=== PATIENT | male | born 1985 | race Caucasian/White ===

== ENCOUNTER 2016-11-04 15:14 | Inpatient (IN) | payer OTHER ==
[2016-11-04 16:52] VITALS: BMI 38.7
--- NOTE | 2016-11-04 17:58 | HP ---
CIWA Score - CIWA Score Nausea/Vomitin-Mild Nausea/No Vomiting Muscle Tremors: 4-Moderate,w/Arms Extend Anxiety: 4-Mod. Anxious/Guarded Agitation: 4-Moderately Restless Paroxysmal Sweats: 1-Minimal Palms Moist Orientation: 1-Uncertain about Date Tacttile Disturbances: 0-None Auditory Disturbances: 0-None Visual Disturbances: 0-None Headache: 0-None Present CIWA-Ar Total Score: 15 Admission ROS BHS - HPI Chief Complaint: withdrawal sx Allergies/Adverse Reactions: Allergies Allergy/AdvReac Type Severity Reaction Status Date / Time No Known Allergies Allergy Verified 11/04/16 17:14 History of Present Illness: 31 years old male with long history of alcohol nicotine dependence has chronic bronchitis positive ppd and schizophrenia is admitted to detox Exam Limitations: No Limitations - Ebola screening Have you traveled outside of the country in the last 21 days: No Have you had contact with anyone from an Ebola affected area: No Have you been sick,other than usual withdrawal symptoms: No Do you have a fever: No - Review of Systems Constitutional: Chills, Changes in sleep, Weight Stable EENT: reports: No Symptoms Reported Respiratory: reports: SOB with Exertion, Productive cough (greenish) Cardiac: reports: No Symptoms Reported GI: reports: Nausea, Poor Fluid Intake, Abdominal cramping : reports: No Symptoms Reported Musculoskeletal: reports: Joint Pain (right knee), Muscle Pain Integumentary: reports: No Symptoms Reported Neuro: reports: Tremors Endocrine: reports: No Symptoms Reported Hematology: reports: No Symptoms Reported Psychiatric: reports: Judgement Intact Other Systems: Reviewed and Negative Patient History - Patient Medical History Hx Anemia: No Hx Asthma: No Hx Chronic Obstructive Pulmonary Disease (COPD): No Hx Cancer: No Hx Cardiac Disorders: No Hx Congestive Heart Failure: No Hx Hypertension: No Hx Hypercholesterolemia: Yes (DIETARY CONTROL) Hx Pacemaker: No HX Cerebrovascular Accident: No Hx Seizures: No Hx Dementia: No Hx Diabetes: No Hx Gastrointestinal Disorders: No Hx Liver Disease: No Hx Genitourinary Disorders: No Hx Sexually Transmitted Disorders: No Hx Renal Disease (ESRD): No Hx Thyroid Disease: No Hx Human Immunodeficiency Virus (HIV): No Hx Hepatitis C: No Hx Depression: No Hx Suicide Attempt: No Hx Bipolar Disorder: No Hx Schizophrenia: Yes - Patient Surgical History Past Surgical History: Yes Hx Neurologic Surgery: No Hx Cataract Extraction: No Hx Cardiac Surgery: No Hx Lung Surgery: No Hx Breast Surgery: No Hx Breast Biopsy: No Hx Abdominal Surgery: No Hx Appendectomy: No Hx Cholecystectomy: No Hx Genitourinary Surgery: No Hx Orthopedic Surgery: Yes (right knee) Anesthesia Reaction: No - PPD History Previous Implant?: Yes Documented Results: Positive w/proof Implanted On Prior [facility] Admission?: Yes Date: 03/28/16 Results: 15 mm PPD to be Administered?: No - Smoking Cessation Smoking history: Current every day smoker Have you smoked in the past 12 months: Yes Aproximately how many cigarettes per day: 20 Cigars Per Day: 0 Hx Chewing Tobacco Use: No Initiated information on smoking cessation: Yes 'Breaking Loose' booklet given: 11/04/16 - Substance & Tx. History Hx Alcohol Use: Yes Hx Substance Use: No Substance Use Type: Alcohol Hx Substance Use Treatment: Yes - Substances Abused Alcohol Route: Oral Frequency: Daily Amount used: 1 PINT NICOLE/ 1 CAN BEER Age of first use: 21 Date of Last Use: 11/04/16 Crack Route: Smoking Frequency: 1-2 times per week Amount used: 2-3 BAGS Age of first use: 16 Date of Last Use: 10/28/16 Family Disease History - Family Disease History Family History: Unremarkable Admission Physical Exam S - Vital Signs Vital Signs: Vital Signs - 24 hr 11/04/16 16:49 Temperature 97.9 F Pulse Rate 102 H Respiratory 20 Rate Blood Pressure 100/69 - Physical General Appearance: Yes: Appropriately Dressed, Mild Distress, Obese, Tremorous , Irritable, Sweating, Anxious HEENTM: Yes: Hearing grossly Normal, Normal ENT Inspection, Normocephalic, Normal Voice Respiratory: Yes: Chest Non-Tender, No Respiratory Distress, No Accessory Muscle Use, Hyperresonant, Inspiration Neck: Yes: Supple, Trachea in good position Breast: Yes: Breasts Symetrical Cardiology: Yes: Regular Rhythm, S1, S2, Tachycardia Abdominal: Yes: Non Tender, Soft Genitourinary: Yes: Within Normal Limits Back: Yes: Normal Inspection Musculoskeletal: Yes: full range of Motion, Gait Steady, Muscle Pain (right knee ) Extremities: Yes: Normal Range of Motion, Non-Tender, Tremors Neurological: Yes: Fully Oriented, Alert, Motor Strength 5/5, Normal Response Integumentary: Yes: Warm Lymphatic: Yes: Within Normal Limits - Diagnostic (1) Positive PPD Current Visit: Yes Status: Resolved Comment: negative chest x ray (2) Schizoaffective disorder Current Visit: Yes Status: Suspected Qualifiers: Schizoaffective disorder type: bipolar Qualified Code(s): F25.0 - Schizoaffective disorder, bipolar type (3) Nicotine dependence Current Visit: Yes Status: Acute Qualifiers: Nicotine product type: cigarettes Substance use status: in withdrawal Qualified Code(s): F17.213 - Nicotine dependence, cigarettes, with withdrawal (4) Alcohol dependence with uncomplicated withdrawal Current Visit: Yes Status: Acute (5) Bronchitis Current Visit: Yes Status: Acute Comment: symbicort Cleared for Admission S - Detox or Rehab S Level of Care: Medically Managed Detox Regimen/Protocol: Librium S Breath Alcohol Content Breath Alcohol Content: 0 Urine Drug Screen - Results Drug Screen Negative: Yes
[2016-11-04] MEDS ORDERED: MENTHOL/PHENOL 1 EACH UD MM PRN (18:14)
[2016-11-04] MEDS ORDERED: MAG HYDROX/AL HYDROX/SIMETH 30 ML UNIT-DOSE CUP PO PRN (18:14)
[2016-11-04] MEDS ORDERED: P-EPHED 60MG/TRIPROLIDI 2.5MG TABLET PO PRN (18:14)
[2016-11-04] MEDS ORDERED: MAGNESIUM HYDROX 2400MG/30ML ORAL SUSPENSION 30 ML CUP PO PRN (18:14)
[2016-11-04] MEDS ORDERED: MAGNESIUM CITRATE 300 ML BOTTLE PO PRN (18:14)
[2016-11-04] MEDS ORDERED: chlordiazePOXIDE HCL 25 MG CAPSULE PO PRN (18:14)
[2016-11-04] MEDS ORDERED: LOPERAMIDE HCL 2 MG CAPSULE PO PRN (18:14)
[2016-11-04] MEDS ORDERED: ACETAMINOPHEN 325 MG TABLET (FP) PO PRN (18:14)
[2016-11-04] MEDS ORDERED: guaiFENesin/D-METHORPHAN HB 10 ML UNIT-DOSE CUPS PO PRN (18:14)
[2016-11-04] MEDS: diphenhydrAMINE HCL 50 MG CAPSULE PO PRN (22:29)
[2016-11-04] MEDS: THIAMINE HCL 100 MG TABLET (FP) PO SCH (22:33)
[2016-11-04] MEDS: BUDESONIDE/FORMETEROL FUMARATE 80/4.5 mcg INHALER IH SCH (22:33)
[2016-11-04] MEDS: chlordiazePOXIDE HCL 25 MG CAPSULE PO SCH (22:33)
[2016-11-04 22:48] LABS: URINE APPEARANCE SLCLOUDY; URINE BILIRUBIN NEGATIVE (NEGATIVE); URINE BLOOD NEGATIVE (NEGATIVE); URINE COLOR YELLOW; URINE GLUCOSE (UA) NEGATIVE (NEGATIVE); URINE KETONE NEGATIVE (NEGATIVE); URINE LEUK ESTERASE NEGATIVE (NEGATIVE); URINE NITRITE NEGATIVE (NEGATIVE); URINE PROTEIN NEGATIVE (NEGATIVE); URINE UROBILINOGEN NEGATIVE E.U./dl (0.2-1.0)
[2016-11-05] MEDS: chlordiazePOXIDE HCL 25 MG CAPSULE PO SCH ×4 (05:46→22:50)
[2016-11-05 10:10] LABS: MCH 29.9 pg (25.7-33.7); MCHC 33.5 g/dl (32.0-35.9); MEAN CELL VOLUME 89.2 fl (80-96); PLATELET COUNT 250 K/MM3 (134-434); RDW 13.4 % (11.9-15.9); WHITE BLOOD COUNT 6.7 K/mm3 (4.0-10.0)
[2016-11-05 10:25] LABS: ALBUMIN 3.7 g/dl (3.4-5.0); CALCIUM 8.8 mg/dL (8.5-10.1)
--- NOTE | 2016-11-05 10:26 | PN ---
S CIWA - CIWA Score Nausea/Vomitin Muscle Tremors: 3 Anxiety: 3 Agitation: 2 Paroxysmal Sweats: 1-Minimal Palms Moist Orientation: 0-Oriented Tacttile Disturbances: 1-Very Mild Itch/Numbness Auditory Disturbances: 1-Very Mild Visual Disturbances: 1-Very Mild Sensitivity Headache: 2-Mild CIWA-Ar Total Score: 17 BHS Progress Note (SOAP) Subjective: ALERT,IRRITABLE,ANXIOUS,PAIN IN BODY,JOINT AND BACK,TREMOR Vital Signs Temperature 98.7 F 11/05/16 10:12 Pulse Rate 90 11/05/16 10:12 Respiratory Rate 20 11/05/16 10:12 Blood Pressure 103/66 11/05/16 10:12 O2 Sat by Pulse Oximetry (%) EKG NSR,NORMAL ECG Laboratory Last Values Urine Color Yellow 11/04/16 22:41 Urine Appearance Slcloudy 11/04/16 22:41 Urine pH 7.0 (5.0-8.0) D 11/04/16 22:41 Ur Specific [place] 1.019 (1.001-1.035) 11/04/16 22:41 Urine Protein Negative (NEGATIVE) 11/04/16 22:41 Urine Glucose (UA) Negative (NEGATIVE) 11/04/16 22:41 Urine Ketones Negative (NEGATIVE) 11/04/16 22:41 Urine Blood Negative (NEGATIVE) 11/04/16 22:41 Urine Nitrite Negative (NEGATIVE) 11/04/16 22:41 Urine Bilirubin Negative (NEGATIVE) 11/04/16 22:41 Urine Urobilinogen Negative E.U./dl (0.2-1.0) 11/04/16 22:41 Ur Leukocyte Esterase Negative (NEGATIVE) 11/04/16 22:41 LABS PENDING Objective: 11/05/16 10:25 Vital Signs Temperature 98.7 F 11/05/16 10:12 Pulse Rate 90 11/05/16 10:12 Respiratory Rate 20 11/05/16 10:12 Blood Pressure 103/66 11/05/16 10:12 O2 Sat by Pulse Oximetry (%) Assessment: 11/05/16 10:25 WITHDRAWAL SYMPTOM Plan: CONTINUE DETOX
[2016-11-05 10:30] LABS: ALK PHOS 86 U/L (45-117); ANION GAP 7 (8-16); BILIRUBIN,TOTAL 0.4 mg/dL (0.2-1.0); CO2 28 mmol/L (21-32); CREATININE 0.9 mg/dL (0.7-1.3); GLUCOSE,RANDOM 99 mg/dL (74-106); SGOT/AST 16 U/L (15-37); SGPT/ALT 33 U/L (12-78); TOT PROT 6.8 g/dl (6.4-8.2)
[2016-11-05] MEDS: PRENATAL VITAMINS W/ FOLIC ACID TABLET (FP) PO SCH (10:32)
[2016-11-05] MEDS: BUDESONIDE/FORMETEROL FUMARATE 80/4.5 mcg INHALER IH SCH ×2 (10:33→22:57)
[2016-11-05] MEDS: NICOTINE 21 MG/24 HOURS TOPICAL PATCH TD SCH (10:34)
--- NOTE | 2016-11-05 11:06 | EKG ---
Test Reason : Blood Pressure : / mmHG Vent. Rate : 088 BPM Atrial Rate : 088 BPM P-R Int : 144 ms QRS Dur : 098 ms QT Int : 356 ms P-R-T Axes : 053 022 034 degrees QTc Int : 430 ms NORMAL SINUS RHYTHM NORMAL ECG NO PREVIOUS ECGS AVAILABLE Confirmed by MELODY JUAN, CONCHITA ([id number]) on 11/05/2016 11:06:39 AM Referred By: Confirmed By:CONCHITA OLIVER MD
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
[2016-11-05 12:23] LABS: HIV 1 & 2 AB NEGATIVE; HIV 1 AGp24 NEGATIVE
[2016-11-05] MEDS: BENZTROPINE MESYLATE 1 MG TABLET (FP) PO SCH (22:50)
[2016-11-05] MEDS: THIAMINE HCL 100 MG TABLET (FP) PO SCH (22:50)
[2016-11-05] MEDS: diphenhydrAMINE HCL 50 MG CAPSULE PO PRN (22:51)
[2016-11-06] MEDS: chlordiazePOXIDE HCL 25 MG CAPSULE PO SCH ×3 (06:15→17:06)
--- NOTE | 2016-11-06 10:14 | PN ---
S CIWA - CIWA Score Nausea/Vomitin-Mild Nausea/No Vomiting Muscle Tremors: 4-Moderate,w/Arms Extend Anxiety: 3 Agitation: 3 Paroxysmal Sweats: 3 Orientation: 0-Oriented Tacttile Disturbances: 0-None Auditory Disturbances: 0-None Visual Disturbances: 0-None Headache: 0-None Present CIWA-Ar Total Score: 14 BHS Progress Note (SOAP) Subjective: Anxiety,tremors,sweating,interrupted sleep,restless Objective: 11/06/16 10:13 Vital Signs - 8 hr 11/06/16 11/06/16 11/06/16 03:20 06:29 09:35 Temperature 97.5 F L 97.0 F L Pulse Rate 84 95 H Respiratory 18 16 20 Rate Blood Pressure 99/68 106/68 Laboratory Tests 11/04/16 11/05/16 11/05/16 22:41 07:14 07:14 WBC 6.7 RBC 4.40 Hgb 13.1 Hct 39.2 MCV 89.2 MCHC 33.5 RDW 13.4 Plt Count 250 MPV 9.0 Sodium Potassium Chloride Carbon Dioxide Anion Gap BUN Creatinine Creat Clearance w eGFR Random Glucose Calcium Total Bilirubin AST ALT Alkaline Phosphatase Total Protein Albumin Urine Color Yellow Urine Appearance Slcloudy Urine pH 7.0 D Ur Specific [place] 1.019 Urine Protein Negative Urine Glucose (UA) Negative Urine Ketones Negative Urine Blood Negative Urine Nitrite Negative Urine Bilirubin Negative Urine Urobilinogen Negative Ur Leukocyte Esterase Negative RPR Titer HIV 1&2 Antibody Screen Negative HIV P24 Antigen Negative 11/05/16 11/05/16 07:14 07:14 WBC RBC Hgb Hct MCV MCHC RDW Plt Count MPV Sodium 141 Potassium 4.0 Chloride 106 Carbon Dioxide 28 Anion Gap 7 L BUN 13 Creatinine 0.9 Creat Clearance w eGFR > 60 Random Glucose 99 Calcium 8.8 Total Bilirubin 0.4 D AST 16 ALT 33 D Alkaline Phosphatase 86 Total Protein 6.8 Albumin 3.7 Urine Color Urine Appearance Urine pH Ur Specific [place] Urine Protein Urine Glucose (UA) Urine Ketones Urine Blood Urine Nitrite Urine Bilirubin Urine Urobilinogen Ur Leukocyte Esterase RPR Titer Nonreactive HIV 1&2 Antibody Screen HIV P24 Antigen labs noted Assessment: 11/06/16 10:13 Withdrawal sx. Plan: Continue detox
[2016-11-06] MEDS: NICOTINE 21 MG/24 HOURS TOPICAL PATCH TD SCH (10:36)
[2016-11-06] MEDS: BENZTROPINE MESYLATE 1 MG TABLET (FP) PO SCH ×2 (10:37→22:23)
[2016-11-06] MEDS: PRENATAL VITAMINS W/ FOLIC ACID TABLET (FP) PO SCH (10:37)
[2016-11-06] MEDS: BUDESONIDE/FORMETEROL FUMARATE 80/4.5 mcg INHALER IH SCH ×2 (10:37→22:23)
[2016-11-06] MEDS: IBUPROFEN 400 MG TABLET (FP) PO PRN (20:53)
[2016-11-06] MEDS: chlordiazePOXIDE 5 MG CAPSULE PO SCH (22:23)
[2016-11-06] MEDS: THIAMINE HCL 100 MG TABLET (FP) PO SCH (22:23)
[2016-11-06] MEDS: NICOTINE POLACRILEX 4 MG GUM BC PRN (22:24)
[2016-11-07] MEDS: chlordiazePOXIDE 5 MG CAPSULE PO SCH ×3 (06:13→17:17)
[2016-11-07] MEDS: NICOTINE 21 MG/24 HOURS TOPICAL PATCH TD SCH (10:18)
[2016-11-07] MEDS: BENZTROPINE MESYLATE 1 MG TABLET (FP) PO SCH ×2 (10:18→22:25)
[2016-11-07] MEDS: PRENATAL VITAMINS W/ FOLIC ACID TABLET (FP) PO SCH (10:19)
[2016-11-07] MEDS: BUDESONIDE/FORMETEROL FUMARATE 80/4.5 mcg INHALER IH SCH ×2 (10:19→22:25)
[2016-11-07] MEDS: NICOTINE POLACRILEX 4 MG GUM BC PRN (10:57)
--- NOTE | 2016-11-07 12:35 | PN ---
BHS Progress Note (SOAP) Subjective: Tremors, Back Ache, Interrupted sleep. Objective: PT. A & O X 2 (DISORIENTED ABOUT DAY / DATE). 11/07/16 12:33 Vital Signs Temperature 95.3 F L 11/07/16 10:43 Pulse Rate 101 H 11/07/16 10:43 Respiratory Rate 18 11/07/16 10:43 Blood Pressure 95/64 11/07/16 10:43 O2 Sat by Pulse Oximetry (%) Laboratory Last Values WBC 6.7 K/mm3 (4.0-10.0) 11/05/16 07:14 RBC 4.40 M/mm3 (4.00-5.60) 11/05/16 07:14 Hgb 13.1 GM/dL (11.7-16.9) 11/05/16 07:14 Hct 39.2 % (35.4-49) 11/05/16 07:14 MCV 89.2 fl (80-96) 11/05/16 07:14 MCHC 33.5 g/dl (32.0-35.9) 11/05/16 07:14 RDW 13.4 % (11.9-15.9) 11/05/16 07:14 Plt Count 250 K/MM3 (134-434) 11/05/16 07:14 MPV 9.0 fl (7.5-11.1) 11/05/16 07:14 Sodium 141 mmol/L (136-145) 11/05/16 07:14 Potassium 4.0 mmol/L (3.5-5.1) 11/05/16 07:14 Chloride 106 mmol/L (98-107) 11/05/16 07:14 Carbon Dioxide 28 mmol/L (21-32) 11/05/16 07:14 Anion Gap 7 (8-16) L 11/05/16 07:14 BUN 13 mg/dL (7-18) 11/05/16 07:14 Creatinine 0.9 mg/dL (0.7-1.3) 11/05/16 07:14 Creat Clearance w eGFR > 60 (>60) 11/05/16 07:14 Random Glucose 99 mg/dL (74-106) 11/05/16 07:14 Calcium 8.8 mg/dL (8.5-10.1) 11/05/16 07:14 Total Bilirubin 0.4 mg/dL (0.2-1.0) D 11/05/16 07:14 AST 16 U/L (15-37) 11/05/16 07:14 ALT 33 U/L (12-78) D 11/05/16 07:14 Alkaline Phosphatase 86 U/L (45-117) 11/05/16 07:14 Total Protein 6.8 g/dl (6.4-8.2) 11/05/16 07:14 Albumin 3.7 g/dl (3.4-5.0) 11/05/16 07:14 Urine Color Yellow 11/04/16 22:41 Urine Appearance Slcloudy 11/04/16 22:41 Urine pH 7.0 (5.0-8.0) D 11/04/16 22:41 Ur Specific [place] 1.019 (1.001-1.035) 11/04/16 22:41 Urine Protein Negative (NEGATIVE) 11/04/16 22:41 Urine Glucose (UA) Negative (NEGATIVE) 11/04/16 22:41 Urine Ketones Negative (NEGATIVE) 11/04/16 22:41 Urine Blood Negative (NEGATIVE) 11/04/16 22:41 Urine Nitrite Negative (NEGATIVE) 11/04/16 22:41 Urine Bilirubin Negative (NEGATIVE) 11/04/16 22:41 Urine Urobilinogen Negative E.U./dl (0.2-1.0) 11/04/16 22:41 Ur Leukocyte Esterase Negative (NEGATIVE) 11/04/16 22:41 RPR Titer Nonreactive (NONREACTIVE) 11/05/16 07:14 HIV 1&2 Antibody Screen Negative 11/05/16 07:14 HIV P24 Antigen Negative 11/05/16 07:14 LABS NOTED Assessment: 11/07/16 12:34 WITHDRAWAL SYMPTOMS. Plan: CONTINUE DETOX. ADVISED PATIENT TO FOLLOW-UP WITH [facility] / REHAB MEDICAL PROVIDER AFTER DISCHARGE FROM DETOX FOR GENERAL MEDICAL ASSESSMENT AND FOR ANY ABNORMAL ADMISSION LAB VALUES.
[2016-11-07] MEDS: THIAMINE HCL 100 MG TABLET (FP) PO SCH (22:25)
[2016-11-07] MEDS: chlordiazePOXIDE HCL 10 MG CAPSULE PO SCH (22:25)
[2016-11-08] MEDS: chlordiazePOXIDE HCL 10 MG CAPSULE PO SCH ×2 (06:01→10:55)
--- NOTE | 2016-11-08 10:20 | DS ---
[facility] Detox Discharge Summary Admission Date: 11/04/16 Discharge Date: 11/08/16 - History Present History: Alcohol Dependence, Cannabis Dependence Pertinent Past History: PPD + - Physical Exam Results Vital Signs: Vital Signs Temperature 97.2 F L 11/08/16 09:30 Pulse Rate 96 H 11/08/16 09:30 Respiratory Rate 20 11/08/16 09:30 Blood Pressure 127/92 11/08/16 09:30 O2 Sat by Pulse Oximetry (%) Pertinent Admission Physical Exam Findings: Withdrawal sx. Laboratory Last Values WBC 6.7 K/mm3 (4.0-10.0) 11/05/16 07:14 RBC 4.40 M/mm3 (4.00-5.60) 11/05/16 07:14 Hgb 13.1 GM/dL (11.7-16.9) 11/05/16 07:14 Hct 39.2 % (35.4-49) 11/05/16 07:14 MCV 89.2 fl (80-96) 11/05/16 07:14 MCHC 33.5 g/dl (32.0-35.9) 11/05/16 07:14 RDW 13.4 % (11.9-15.9) 11/05/16 07:14 Plt Count 250 K/MM3 (134-434) 11/05/16 07:14 MPV 9.0 fl (7.5-11.1) 11/05/16 07:14 Sodium 141 mmol/L (136-145) 11/05/16 07:14 Potassium 4.0 mmol/L (3.5-5.1) 11/05/16 07:14 Chloride 106 mmol/L (98-107) 11/05/16 07:14 Carbon Dioxide 28 mmol/L (21-32) 11/05/16 07:14 Anion Gap 7 (8-16) L 11/05/16 07:14 BUN 13 mg/dL (7-18) 11/05/16 07:14 Creatinine 0.9 mg/dL (0.7-1.3) 11/05/16 07:14 Creat Clearance w eGFR > 60 (>60) 11/05/16 07:14 Random Glucose 99 mg/dL (74-106) 11/05/16 07:14 Calcium 8.8 mg/dL (8.5-10.1) 11/05/16 07:14 Total Bilirubin 0.4 mg/dL (0.2-1.0) D 11/05/16 07:14 AST 16 U/L (15-37) 11/05/16 07:14 ALT 33 U/L (12-78) D 11/05/16 07:14 Alkaline Phosphatase 86 U/L (45-117) 11/05/16 07:14 Total Protein 6.8 g/dl (6.4-8.2) 11/05/16 07:14 Albumin 3.7 g/dl (3.4-5.0) 11/05/16 07:14 Urine Color Yellow 11/04/16 22:41 Urine Appearance Slcloudy 11/04/16 22:41 Urine pH 7.0 (5.0-8.0) D 11/04/16 22:41 Ur Specific [place] 1.019 (1.001-1.035) 11/04/16 22:41 Urine Protein Negative (NEGATIVE) 11/04/16 22:41 Urine Glucose (UA) Negative (NEGATIVE) 11/04/16 22:41 Urine Ketones Negative (NEGATIVE) 11/04/16 22:41 Urine Blood Negative (NEGATIVE) 11/04/16 22:41 Urine Nitrite Negative (NEGATIVE) 11/04/16 22:41 Urine Bilirubin Negative (NEGATIVE) 11/04/16 22:41 Urine Urobilinogen Negative E.U./dl (0.2-1.0) 11/04/16 22:41 Ur Leukocyte Esterase Negative (NEGATIVE) 11/04/16 22:41 RPR Titer Nonreactive (NONREACTIVE) 11/05/16 07:14 HIV 1&2 Antibody Screen Negative 11/05/16 07:14 HIV P24 Antigen Negative 11/05/16 07:14 labs noted - Treatment Hospital Course: Detox Protocol Followed, Detoxed Safely, Responded well, Discharged Condition Good, Rehab Referral Accepted Patient has Accepted a Rehab Referral to: [facility] - Medication Discharge Medications: Ambulatory Orders Benztropine Mesylate [Cogentin -] 2 mg PO BID 03/26/16 Diphenhydramine [Benadryl -] 50 mg PO HS 03/26/16 Haloperidol Decanoate [Haldol Decanoate 100] 200 mg IM MONTHLY 11/04/16 - Diagnosis (1) Alcohol dependence with uncomplicated withdrawal Current Visit: Yes Status: Acute (2) Marijuana dependence Current Visit: Yes Status: Acute (3) Nicotine dependence Current Visit: Yes Status: Acute Qualifiers: Nicotine product type: cigarettes Substance use status: in withdrawal Qualified Code(s): F17.213 - Nicotine dependence, cigarettes, with withdrawal (4) Schizoaffective disorder Current Visit: Yes Status: Suspected Qualifiers: Schizoaffective disorder type: bipolar Qualified Code(s): F25.0 - Schizoaffective disorder, bipolar type - AMA Did Patient Leave Against Medical Advice: No
[2016-11-08] MEDS: BUDESONIDE/FORMETEROL FUMARATE 80/4.5 mcg INHALER IH SCH ×2 (10:55→21:11)
[2016-11-08] MEDS: BENZTROPINE MESYLATE 1 MG TABLET (FP) PO SCH ×2 (10:55→21:11)
[2016-11-08] MEDS: PRENATAL VITAMINS W/ FOLIC ACID TABLET (FP) PO SCH (10:55)
[2016-11-08] MEDS: NICOTINE 21 MG/24 HOURS TOPICAL PATCH TD SCH (10:56)
[2016-11-08] MEDS ORDERED: PT OWN MED DRAWER 7, Y5N ONE ×2 (12:08→21:12)
--- NOTE | 2016-11-08 13:22 | HP ---
[facility] Rehab Assess/Revision - Admission History Admitted to Rehab from: [facility] Date of Admission to Rehab: 11/08/16 - Vital signs Vital Signs: Vital Signs Period Temp Pulse Resp BP Sys/Mobley Pulse Ox Last 24 Hr 97.2 F-98.4 F 86-101 16-20 93-127/60-92 - Findings Detox History & Physical reviewed: Yes Concur with findings: Yes
[2016-11-08] MEDS: THIAMINE HCL 100 MG TABLET (FP) PO SCH (21:11)
[2016-11-08] MEDS: diphenhydrAMINE HCL 50 MG CAPSULE PO PRN (21:11)
[2016-11-08] MEDS: NICOTINE POLACRILEX 4 MG GUM BC PRN (22:00)
[2016-11-09] MEDS ORDERED: PT OWN MED DRAWER 7, Y5N ONE ×2 (08:57→21:54)
[2016-11-09] MEDS: BUDESONIDE/FORMETEROL FUMARATE 80/4.5 mcg INHALER IH SCH ×2 (10:05→21:53)
[2016-11-09] MEDS: BENZTROPINE MESYLATE 1 MG TABLET (FP) PO SCH ×2 (10:05→21:53)
[2016-11-09] MEDS: PRENATAL VITAMINS W/ FOLIC ACID TABLET (FP) PO SCH (10:05)
[2016-11-09] MEDS: NICOTINE 21 MG/24 HOURS TOPICAL PATCH TD SCH (10:06)
[2016-11-09] MEDS: THIAMINE HCL 100 MG TABLET (FP) PO SCH (21:52)
[2016-11-09] MEDS: diphenhydrAMINE HCL 50 MG CAPSULE PO PRN (21:53)
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
[2016-11-10] MEDS: BENZTROPINE MESYLATE 1 MG TABLET (FP) PO SCH ×2 (10:35→21:06)
[2016-11-10] MEDS: PRENATAL VITAMINS W/ FOLIC ACID TABLET (FP) PO SCH (10:35)
[2016-11-10] MEDS: BUDESONIDE/FORMETEROL FUMARATE 80/4.5 mcg INHALER IH SCH ×2 (10:36→21:06)
[2016-11-10] MEDS: NICOTINE 21 MG/24 HOURS TOPICAL PATCH TD SCH (10:36)
[2016-11-10] MEDS: THIAMINE HCL 100 MG TABLET (FP) PO SCH (21:06)
[2016-11-10] MEDS: diphenhydrAMINE HCL 50 MG CAPSULE PO PRN (21:06)
[2016-11-11] MEDS: PRENATAL VITAMINS W/ FOLIC ACID TABLET (FP) PO SCH (10:38)
[2016-11-11] MEDS: BUDESONIDE/FORMETEROL FUMARATE 80/4.5 mcg INHALER IH SCH ×2 (10:38→21:24)
[2016-11-11] MEDS: NICOTINE 21 MG/24 HOURS TOPICAL PATCH TD SCH (10:38)
[2016-11-11] MEDS: BENZTROPINE MESYLATE 1 MG TABLET (FP) PO SCH ×2 (10:38→21:23)
[2016-11-11] MEDS: IBUPROFEN 400 MG TABLET (FP) PO PRN (20:38)
[2016-11-11] MEDS: THIAMINE HCL 100 MG TABLET (FP) PO SCH (21:23)
[2016-11-11] MEDS: hydrOXYzine PAMOATE 50 MG CAPSULE (FP) PO PRN (21:23)
[2016-11-11] MEDS ORDERED: PT OWN MED DRAWER 7, Y5N ONE (21:24)
[2016-11-12] MEDS: BUDESONIDE/FORMETEROL FUMARATE 80/4.5 mcg INHALER IH SCH ×2 (10:25→21:24)
[2016-11-12] MEDS: BENZTROPINE MESYLATE 1 MG TABLET (FP) PO SCH ×2 (10:25→21:24)
[2016-11-12] MEDS ORDERED: PT OWN MED DRAWER 7, Y5N ONE (10:26)
[2016-11-12] MEDS: PRENATAL VITAMINS W/ FOLIC ACID TABLET (FP) PO SCH (10:26)
[2016-11-12] MEDS: NICOTINE 21 MG/24 HOURS TOPICAL PATCH TD SCH (10:26)
[2016-11-12] MEDS: THIAMINE HCL 100 MG TABLET (FP) PO SCH (21:24)
[2016-11-12] MEDS: diphenhydrAMINE HCL 50 MG CAPSULE PO PRN (21:24)
[2016-11-13] MEDS ORDERED: PT OWN MED DRAWER 7, Y5N ONE ×2 (09:06→21:53)
[2016-11-13] MEDS: PRENATAL VITAMINS W/ FOLIC ACID TABLET (FP) PO SCH (09:47)
[2016-11-13] MEDS: NICOTINE 21 MG/24 HOURS TOPICAL PATCH TD SCH (09:47)
[2016-11-13] MEDS: BENZTROPINE MESYLATE 1 MG TABLET (FP) PO SCH ×2 (09:47→21:52)
[2016-11-13] MEDS: BUDESONIDE/FORMETEROL FUMARATE 80/4.5 mcg INHALER IH SCH ×2 (09:47→21:52)
[2016-11-13] MEDS: IBUPROFEN 400 MG TABLET (FP) PO PRN (17:57)
[2016-11-13] MEDS: diphenhydrAMINE HCL 50 MG CAPSULE PO PRN (21:52)
[2016-11-13] MEDS: THIAMINE HCL 100 MG TABLET (FP) PO SCH (21:53)
[2016-11-14] MEDS: NICOTINE 21 MG/24 HOURS TOPICAL PATCH TD SCH (10:35)
[2016-11-14] MEDS: BUDESONIDE/FORMETEROL FUMARATE 80/4.5 mcg INHALER IH SCH ×2 (10:35→21:40)
[2016-11-14] MEDS: PRENATAL VITAMINS W/ FOLIC ACID TABLET (FP) PO SCH (10:35)
[2016-11-14] MEDS: BENZTROPINE MESYLATE 1 MG TABLET (FP) PO SCH ×2 (10:35→21:40)
[2016-11-14] MEDS: THIAMINE HCL 100 MG TABLET (FP) PO SCH (21:40)
[2016-11-14] MEDS: diphenhydrAMINE HCL 50 MG CAPSULE PO PRN (21:40)
[2016-11-14] MEDS ORDERED: PT OWN MED DRAWER 7, Y5N ONE ×2 (21:40→21:50)
[2016-11-15] MEDS: BUDESONIDE/FORMETEROL FUMARATE 80/4.5 mcg INHALER IH SCH ×2 (10:27→22:17)
[2016-11-15] MEDS: BENZTROPINE MESYLATE 1 MG TABLET (FP) PO SCH ×2 (10:27→21:42)
[2016-11-15] MEDS: PRENATAL VITAMINS W/ FOLIC ACID TABLET (FP) PO SCH (10:27)
[2016-11-15] MEDS: NICOTINE 21 MG/24 HOURS TOPICAL PATCH TD SCH (10:28)
[2016-11-15] MEDS: diphenhydrAMINE HCL 50 MG CAPSULE PO PRN (21:41)
[2016-11-15] MEDS: THIAMINE HCL 100 MG TABLET (FP) PO SCH (21:41)
[2016-11-16] MEDS ORDERED: PT OWN MED DRAWER 7, Y5N ONE ×2 (09:10→13:58)
[2016-11-16] MEDS: BUDESONIDE/FORMETEROL FUMARATE 80/4.5 mcg INHALER IH SCH ×2 (10:44→21:32)
[2016-11-16] MEDS: NICOTINE 21 MG/24 HOURS TOPICAL PATCH TD SCH (10:44)
[2016-11-16] MEDS: BENZTROPINE MESYLATE 1 MG TABLET (FP) PO SCH ×2 (10:45→21:32)
[2016-11-16] MEDS: PRENATAL VITAMINS W/ FOLIC ACID TABLET (FP) PO SCH (10:45)
[2016-11-16] MEDS: ALBUTEROL SO4 6.7 GM HFA INHALER IH PRN (13:58)
[2016-11-16] MEDS: diphenhydrAMINE HCL 50 MG CAPSULE PO PRN (21:32)
[2016-11-16] MEDS: THIAMINE HCL 100 MG TABLET (FP) PO SCH (21:32)
[2016-11-17] MEDS: NICOTINE 21 MG/24 HOURS TOPICAL PATCH TD SCH (10:11)
[2016-11-17] MEDS: PRENATAL VITAMINS W/ FOLIC ACID TABLET (FP) PO SCH (10:11)
[2016-11-17] MEDS: BENZTROPINE MESYLATE 1 MG TABLET (FP) PO SCH ×2 (10:11→21:25)
[2016-11-17] MEDS: ALBUTEROL SO4 6.7 GM HFA INHALER IH PRN (10:12)
[2016-11-17] MEDS: BUDESONIDE/FORMETEROL FUMARATE 80/4.5 mcg INHALER IH SCH ×2 (10:12→21:25)
--- NOTE | 2016-11-17 11:25 | PN ---
Psychiatric Progress Note Vital Signs: Vital Signs Period Temp Pulse Resp BP Sys/Mobley Pulse Ox Last 24 Hr 98.1 F 64 17-18 116/64 Date of Session: 11/17/16 Chief Complaint:: Psychiatrist Discharge Note HPI: Patient addressing Alcohol and Cocaine Dependence comorbid with Nicotine Dependence and Schizoaffective Disorder ROS: PPD+, Bronchitis Current Medications: Active Medications Generic Name Dose Route Start Last Admin Trade Name Freq PRN Reason Stop Dose Admin Acetaminophen 650 mg 11/04/16 18:14 Tylenol - PO Q4H PRN FEVER OR PAIN Al Hydroxide/Mg Hydroxide 30 ml 11/04/16 18:14 Mylanta Oral Suspension - PO Q6H PRN DYSPEPSIA Albuterol Sulfate 2 puff 11/04/16 18:26 11/17/16 10:12 Ventolin Hfa Inhaler - IH 2 puff Q4H PRN Administration SHORT OF BREATH/WHEEZING Benztropine Mesylate 2 mg 11/05/16 22:00 11/17/16 10:11 Cogentin - PO 2 mg BID CARLEEN Administration Budesonide/Formoterol Fumarate 2 puff 11/04/16 22:00 11/17/16 10:12 Symbicort 80/4.5mcg - IH 2 puff BID CARLEEN Administration Diphenhydramine HCl 50 mg 11/04/16 18:14 11/16/16 21:32 Benadryl - PO 50 mg HSMR1 PRN Administration INSOMNIA Eucalyptus/Menthol/Phenol/Sorbitol 1 each 11/04/16 18:14 Cepastat Lozenge - MM Q4H PRN SORE THROAT Guaifenesin 10 ml 11/04/16 18:14 Robitussin Dm - PO Q6H PRN COUGH Hydroxyzine Pamoate 50 mg 11/04/16 18:14 11/11/16 21:23 Vistaril - PO 50 mg Q4H PRN Administration AGITATION Ibuprofen 400 mg 11/04/16 18:14 11/13/16 17:57 Motrin - PO 400 mg Q6H PRN Administration SEVERE PAIN Loperamide HCl 4 mg 11/04/16 18:14 Imodium - PO Q6H PRN DIARRHEA Magnesium Citrate 300 ml 11/04/16 18:14 Citroma - PO Q48H PRN CONSTIPATION Magnesium Hydroxide 30 ml 11/04/16 18:14 Milk Of Magnesia - PO DAILY PRN CONSTIPATION Nicotine 21 mg 11/05/16 10:00 11/17/16 10:11 Nicoderm Patch - TD 21 mg DAILY CARLEEN Administration Nicotine Polacrilex 4 mg 11/04/16 18:14 11/08/16 22:00 Nicorette Gum - BC 4 mg Q2H PRN Administration NICOTINE REPLACEMENT RX Multivit/Folic Acid/Iron 1 tab 11/05/16 10:00 11/17/16 10:11 Vitamins (Sjr) - PO 1 tab DAILY CARLEEN Administration Pseudoephedrine/Triprolidine 1 combo 11/04/16 18:14 Actifed - PO TID PRN NASAL CONGESTION Thiamine HCl 100 mg 11/04/16 22:00 11/16/16 21:32 Vitamin B1 - PO 100 mg HS CARLEEN Administration Current Side Effect: No Lab tests ordered: Yes Lab tests reviewed: Yes Provider note:: Patient has comleted this program today. He has partially met his treatment goals and will continue to address his issues in outpatient treatment at [facility] in [facility] in . 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 He responded well to Cogentin 2 mg po BID and Benadryl 50 mg po HS. He is stable for discharge today Total face to face time:: 35 Psychiatric Treatment Plan - Problem List (1) Alcohol dependence with uncomplicated withdrawal Current Visit: Yes (2) Cocaine dependence Current Visit: Yes (3) Nicotine dependence Current Visit: Yes Qualifiers: Nicotine product type: cigarettes Substance use status: in withdrawal Qualified Code(s): F17.213 - Nicotine dependence, cigarettes, with withdrawal (4) Schizoaffective disorder Current Visit: Yes (5) Positive PPD Current Visit: Yes Comment: negative chest x ray (6) Bronchitis Current Visit: Yes Comment: symbicort
[2016-11-17] MEDS: hydrOXYzine PAMOATE 50 MG CAPSULE (FP) PO PRN (11:37)
[2016-11-17] MEDS: diphenhydrAMINE HCL 50 MG CAPSULE PO PRN (21:25)
[2016-11-17] MEDS: THIAMINE HCL 100 MG TABLET (FP) PO SCH (21:25)
[2016-11-17] MEDS ORDERED: PT OWN MED DRAWER 7, Y5N ONE (21:26)
[2016-11-18] MEDS: BENZTROPINE MESYLATE 1 MG TABLET (FP) PO SCH ×2 (09:47→21:12)
[2016-11-18] MEDS: PRENATAL VITAMINS W/ FOLIC ACID TABLET (FP) PO SCH (09:47)
[2016-11-18] MEDS: NICOTINE 21 MG/24 HOURS TOPICAL PATCH TD SCH (09:47)
[2016-11-18] MEDS: ALBUTEROL SO4 6.7 GM HFA INHALER IH PRN ×2 (09:49→21:13)
[2016-11-18] MEDS: BUDESONIDE/FORMETEROL FUMARATE 80/4.5 mcg INHALER IH SCH ×2 (09:49→21:12)
[2016-11-18] MEDS ORDERED: PT OWN MED DRAWER 7, Y5N ONE ×2 (09:50→21:13)
[2016-11-18] MEDS: THIAMINE HCL 100 MG TABLET (FP) PO SCH (21:11)
[2016-11-18] MEDS: diphenhydrAMINE HCL 50 MG CAPSULE PO PRN (21:11)
[2016-11-19] MEDS: PRENATAL VITAMINS W/ FOLIC ACID TABLET (FP) PO SCH (09:58)
[2016-11-19] MEDS: NICOTINE 21 MG/24 HOURS TOPICAL PATCH TD SCH (09:58)
[2016-11-19] MEDS: BUDESONIDE/FORMETEROL FUMARATE 80/4.5 mcg INHALER IH SCH ×2 (09:58→21:48)
[2016-11-19] MEDS: BENZTROPINE MESYLATE 1 MG TABLET (FP) PO SCH ×2 (09:58→21:49)
[2016-11-19] MEDS: THIAMINE HCL 100 MG TABLET (FP) PO SCH (21:46)
[2016-11-19] MEDS: diphenhydrAMINE HCL 50 MG CAPSULE PO PRN (21:46)
[2016-11-20] MEDS: PRENATAL VITAMINS W/ FOLIC ACID TABLET (FP) PO SCH (09:44)
[2016-11-20] MEDS: BENZTROPINE MESYLATE 1 MG TABLET (FP) PO SCH ×2 (09:44→21:45)
[2016-11-20] MEDS: BUDESONIDE/FORMETEROL FUMARATE 80/4.5 mcg INHALER IH SCH ×2 (09:44→21:45)
[2016-11-20] MEDS: NICOTINE 21 MG/24 HOURS TOPICAL PATCH TD SCH (09:44)
[2016-11-20] MEDS: NICOTINE POLACRILEX 4 MG GUM BC PRN (12:52)
[2016-11-20] MEDS: diphenhydrAMINE HCL 50 MG CAPSULE PO PRN (21:44)
[2016-11-20] MEDS: THIAMINE HCL 100 MG TABLET (FP) PO SCH (21:44)
[2016-11-20] MEDS: IBUPROFEN 400 MG TABLET (FP) PO PRN (22:51)
[2016-11-21] MEDS: PRENATAL VITAMINS W/ FOLIC ACID TABLET (FP) PO SCH (09:42)
[2016-11-21] MEDS: BENZTROPINE MESYLATE 1 MG TABLET (FP) PO SCH ×2 (09:42→21:07)
[2016-11-21] MEDS: NICOTINE 21 MG/24 HOURS TOPICAL PATCH TD SCH (09:42)
[2016-11-21] MEDS ORDERED: PT OWN MED DRAWER 7, Y5N ONE (09:43)
[2016-11-21] MEDS: BUDESONIDE/FORMETEROL FUMARATE 80/4.5 mcg INHALER IH SCH ×2 (09:43→21:07)
[2016-11-21] MEDS: NICOTINE POLACRILEX 4 MG GUM BC PRN ×3 (11:33→21:23)
[2016-11-21] MEDS: THIAMINE HCL 100 MG TABLET (FP) PO SCH (21:07)
[2016-11-21] MEDS: diphenhydrAMINE HCL 50 MG CAPSULE PO PRN (21:08)
[2016-11-22] MEDS: BENZTROPINE MESYLATE 1 MG TABLET (FP) PO SCH ×2 (10:23→21:01)
[2016-11-22] MEDS: NICOTINE 21 MG/24 HOURS TOPICAL PATCH TD SCH (10:23)
[2016-11-22] MEDS: BUDESONIDE/FORMETEROL FUMARATE 80/4.5 mcg INHALER IH SCH ×2 (10:23→21:03)
[2016-11-22] MEDS: PRENATAL VITAMINS W/ FOLIC ACID TABLET (FP) PO SCH (10:23)
[2016-11-22] MEDS: NICOTINE POLACRILEX 4 MG GUM BC PRN ×3 (10:24→21:03)
[2016-11-22] MEDS: THIAMINE HCL 100 MG TABLET (FP) PO SCH (21:01)
[2016-11-22] MEDS ORDERED: PT OWN MED DRAWER 7, Y5N ONE (21:02)
[2016-11-22] MEDS: diphenhydrAMINE HCL 50 MG CAPSULE PO PRN (21:02)
[2016-11-23] MEDS: NICOTINE POLACRILEX 4 MG GUM BC PRN ×3 (09:06→20:08)
[2016-11-23] MEDS: PRENATAL VITAMINS W/ FOLIC ACID TABLET (FP) PO SCH (09:45)
[2016-11-23] MEDS: BENZTROPINE MESYLATE 1 MG TABLET (FP) PO SCH ×2 (09:45→21:42)
[2016-11-23] MEDS: NICOTINE 21 MG/24 HOURS TOPICAL PATCH TD SCH (09:46)
[2016-11-23] MEDS: BUDESONIDE/FORMETEROL FUMARATE 80/4.5 mcg INHALER IH SCH ×2 (09:46→21:41)
--- NOTE | 2016-11-23 11:01 | PN ---
[facility] Progress Note Note: C/O external hemorrhoids HC 2.5% bid
[2016-11-23] MEDS: HYDROCORTISONE 2.5% TOPICAL CREAM 30 GM TUBE TP SCH ×2 (14:52→21:42)
[2016-11-23] MEDS: diphenhydrAMINE HCL 50 MG CAPSULE PO PRN (21:41)
[2016-11-23] MEDS: THIAMINE HCL 100 MG TABLET (FP) PO SCH (21:41)
[2016-11-23] MEDS ORDERED: PT OWN MED DRAWER 7, Y5N ONE (21:42)
[2016-11-24] MEDS ORDERED: PT OWN MED DRAWER 7, Y5N ONE (08:35)
[2016-11-24] MEDS: PRENATAL VITAMINS W/ FOLIC ACID TABLET (FP) PO SCH (09:45)
[2016-11-24] MEDS: NICOTINE 21 MG/24 HOURS TOPICAL PATCH TD SCH (09:45)
[2016-11-24] MEDS: BUDESONIDE/FORMETEROL FUMARATE 80/4.5 mcg INHALER IH SCH ×2 (09:45→21:26)
[2016-11-24] MEDS: BENZTROPINE MESYLATE 1 MG TABLET (FP) PO SCH ×2 (09:45→21:27)
[2016-11-24] MEDS: HYDROCORTISONE 2.5% TOPICAL CREAM 30 GM TUBE TP SCH ×2 (09:46→23:58)
[2016-11-24] MEDS: NICOTINE POLACRILEX 4 MG GUM BC PRN ×2 (09:47→12:52)
[2016-11-24] MEDS: diphenhydrAMINE HCL 50 MG CAPSULE PO PRN (21:25)
[2016-11-24] MEDS: THIAMINE HCL 100 MG TABLET (FP) PO SCH (21:25)
[2016-11-25] MEDS ORDERED: PT OWN MED DRAWER 7, Y5N ONE ×3 (08:48→21:13)
[2016-11-25] MEDS: PRENATAL VITAMINS W/ FOLIC ACID TABLET (FP) PO SCH (09:38)
[2016-11-25] MEDS: BUDESONIDE/FORMETEROL FUMARATE 80/4.5 mcg INHALER IH SCH ×2 (09:38→21:13)
[2016-11-25] MEDS: NICOTINE 21 MG/24 HOURS TOPICAL PATCH TD SCH (09:39)
[2016-11-25] MEDS: BENZTROPINE MESYLATE 1 MG TABLET (FP) PO SCH ×2 (09:39→21:13)
[2016-11-25] MEDS: HYDROCORTISONE 2.5% TOPICAL CREAM 30 GM TUBE TP SCH ×2 (09:40→22:45)
[2016-11-25] MEDS: NICOTINE POLACRILEX 4 MG GUM BC PRN ×3 (09:41→21:14)
[2016-11-25] MEDS: ALBUTEROL SO4 6.7 GM HFA INHALER IH PRN (14:54)
[2016-11-25] MEDS: diphenhydrAMINE HCL 50 MG CAPSULE PO PRN (21:12)
[2016-11-25] MEDS: THIAMINE HCL 100 MG TABLET (FP) PO SCH (21:12)
[2016-11-26] MEDS ORDERED: PT OWN MED DRAWER 7, Y5N ONE ×2 (08:41→21:27)
[2016-11-26] MEDS: BUDESONIDE/FORMETEROL FUMARATE 80/4.5 mcg INHALER IH SCH ×2 (09:43→21:26)
[2016-11-26] MEDS: BENZTROPINE MESYLATE 1 MG TABLET (FP) PO SCH ×2 (09:43→21:26)
[2016-11-26] MEDS: PRENATAL VITAMINS W/ FOLIC ACID TABLET (FP) PO SCH (09:43)
[2016-11-26] MEDS: NICOTINE 21 MG/24 HOURS TOPICAL PATCH TD SCH (09:44)
[2016-11-26] MEDS: HYDROCORTISONE 2.5% TOPICAL CREAM 30 GM TUBE TP SCH ×2 (09:45→21:27)
[2016-11-26] MEDS: NICOTINE POLACRILEX 4 MG GUM BC PRN ×2 (13:02→17:57)
[2016-11-26] MEDS: THIAMINE HCL 100 MG TABLET (FP) PO SCH (21:26)
[2016-11-26] MEDS: hydrOXYzine PAMOATE 50 MG CAPSULE (FP) PO PRN (21:26)
[2016-11-27] MEDS ORDERED: PT OWN MED DRAWER 7, Y5N ONE ×2 (08:22→21:30)
[2016-11-27] MEDS: PRENATAL VITAMINS W/ FOLIC ACID TABLET (FP) PO SCH (09:46)
[2016-11-27] MEDS: HYDROCORTISONE 2.5% TOPICAL CREAM 30 GM TUBE TP SCH ×2 (09:46→22:36)
[2016-11-27] MEDS: BENZTROPINE MESYLATE 1 MG TABLET (FP) PO SCH ×2 (09:46→22:36)
[2016-11-27] MEDS: BUDESONIDE/FORMETEROL FUMARATE 80/4.5 mcg INHALER IH SCH ×2 (09:47→21:29)
[2016-11-27] MEDS: NICOTINE 21 MG/24 HOURS TOPICAL PATCH TD SCH (09:47)
--- NOTE | 2016-11-27 11:28 | PN ---
Psychiatric Progress Note Vital Signs: Vital Signs Period Temp Pulse Resp BP Sys/Mobley Pulse Ox Last 24 Hr 98.3 F 82 16-18 109/68 Date of Session: 11/27/16 Chief Complaint:: Psychiatrist Discharge Note HPI: Patient addressing Alcohol and Cocaine Dependence comorbid with Nicotine Dependence and Schizoaffective Disorder ROS: PPD+, Bronchitis were medically managed Current Medications: Active Medications Generic Name Dose Route Start Last Admin Trade Name Freq PRN Reason Stop Dose Admin Acetaminophen 650 mg 11/04/16 18:14 Tylenol - PO Q4H PRN FEVER OR PAIN Al Hydroxide/Mg Hydroxide 30 ml 11/04/16 18:14 Mylanta Oral Suspension - PO Q6H PRN DYSPEPSIA Albuterol Sulfate 2 puff 11/04/16 18:26 11/25/16 14:54 Ventolin Hfa Inhaler - IH 2 puff Q4H PRN Administration SHORT OF BREATH/WHEEZING Benztropine Mesylate 2 mg 11/05/16 22:00 11/27/16 09:46 Cogentin - PO 2 mg BID CARLEEN Administration Budesonide/Formoterol Fumarate 2 puff 11/04/16 22:00 11/27/16 09:47 Symbicort 80/4.5mcg - IH 2 puff BID CARLEEN Administration Diphenhydramine HCl 50 mg 11/04/16 18:14 11/25/16 21:12 Benadryl - PO 50 mg HSMR1 PRN Administration INSOMNIA Eucalyptus/Menthol/Phenol/Sorbitol 1 each 11/04/16 18:14 Cepastat Lozenge - MM Q4H PRN SORE THROAT Guaifenesin 10 ml 11/04/16 18:14 Robitussin Dm - PO Q6H PRN COUGH Hydrocortisone 1 applic 11/23/16 13:00 11/27/16 09:46 Anusol 2.5% Hc Cream - TP Not Given BID CARLEEN Hydroxyzine Pamoate 50 mg 11/04/16 18:14 11/26/16 21:26 Vistaril - PO 50 mg Q4H PRN Administration AGITATION Ibuprofen 400 mg 11/04/16 18:14 11/20/16 22:51 Motrin - PO 400 mg Q6H PRN Administration SEVERE PAIN Loperamide HCl 4 mg 11/04/16 18:14 Imodium - PO Q6H PRN DIARRHEA Magnesium Citrate 300 ml 11/04/16 18:14 Citroma - PO Q48H PRN CONSTIPATION Magnesium Hydroxide 30 ml 11/04/16 18:14 Milk Of Magnesia - PO DAILY PRN CONSTIPATION Nicotine 21 mg 11/05/16 10:00 11/27/16 09:47 Nicoderm Patch - TD 21 mg DAILY CARLEEN Administration Nicotine Polacrilex 4 mg 11/04/16 18:14 11/26/16 17:57 Nicorette Gum - BC 4 mg Q2H PRN Administration NICOTINE REPLACEMENT RX Multivit/Folic Acid/Iron 1 tab 11/05/16 10:00 11/27/16 09:46 Vitamins (Sjr) - PO 1 tab DAILY CARLEEN Administration Pseudoephedrine/Triprolidine 1 combo 11/04/16 18:14 Actifed - PO TID PRN NASAL CONGESTION Thiamine HCl 100 mg 11/04/16 22:00 11/26/16 21:26 Vitamin B1 - PO 100 mg HS CARLEEN Administration Current Side Effect: No Lab tests ordered: Yes Lab tests reviewed: Yes Provider note:: Patient will complete this program on 11/28/16. He has met his treatment goals and will continue to address his issues in outpatient treatment at [facility]. 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 He responded well to Haldol Dec 200 mg IM q Monthly, Cogentin 2 mg po BID and Benadryl 50 mg po HS. Scripts for 30 days supply of Cogentin & Benadryl will be electronicaly transmitted to [facility] at [address] [place] [address]. He is stable for discharge on 11/28/16 Total face to face time:: 35 Mental Status Exam - Mental Status Exam Alert and Oriented to: Time, Place, Person Cognitive Function: Fair Mood: Hopeful, Euthymic Affect: Appropriate Patient Behavior: Cooperative Speech Pattern: Clear Voice Loudness: Normal Thought Process: Intact Thought Disorder: Not Present Hallucinations: Denies Suicidal Ideation: Denies Homicidal Ideation: Denies Insight/Judgement: Fair Sleep: Fair Appetite: Good Muscle strength/Tone: Normal Gait/Station: Normal Psychiatric Treatment Plan - Problem List (1) Alcohol dependence with uncomplicated withdrawal Current Visit: Yes (2) Cocaine dependence Current Visit: Yes (3) Nicotine dependence Current Visit: Yes Qualifiers: Nicotine product type: cigarettes Substance use status: in withdrawal Qualified Code(s): F17.213 - Nicotine dependence, cigarettes, with withdrawal (4) Schizoaffective disorder Current Visit: Yes (5) Positive PPD Current Visit: Yes Comment: negative chest x ray (6) Bronchitis Current Visit: Yes Comment: symbicort Initial treatment plan: Patient will be dischsarged tomorrow and referred to [facility] for outpatient treatment
[2016-11-27] MEDS: NICOTINE POLACRILEX 4 MG GUM BC PRN ×3 (12:34→19:57)
[2016-11-27] MEDS: THIAMINE HCL 100 MG TABLET (FP) PO SCH (21:28)
[2016-11-27] MEDS: hydrOXYzine PAMOATE 50 MG CAPSULE (FP) PO PRN (21:29)
[2016-11-28 07:22] VITALS: BP 133/87; PULSE 97; TEMP 98.6
[2016-11-28] MEDS ORDERED: PT OWN MED DRAWER 7, Y5N ONE (08:29)
== END 2016-11-28 08:30 | disposition home or self-care (01) | DRG 895 ==
LOC: YASAS 15:14 → Y3N 18:14 → Y3W 11-08 11:07
PROVIDERS: ADMIT Internal Medicine; ATTEND Psychiatry & Neurology Psychiatry
PROC: HZ42ZZZ Group Counseling for Substance Abuse Treatment, Cognitive-Behavioral (ICD-10-PCS; principal; 2016-11-28)
DX: F10.230 Alcohol dependence with withdrawal, uncomplicated (principal); F14.20 Cocaine dependence, uncomplicated; F12.20 Cannabis dependence, uncomplicated; F17.213 Nicotine dependence, cigarettes, with withdrawal; F25.9 Schizoaffective disorder, unspecified; R76.11 Nonspecific reaction to tuberculin skin test without active tuberculosis; J40 Bronchitis, not specified as acute or chronic
CPT/HCPCS: 36415; 80053; 81003; 85027; 86593; 87389; 93005; 93010

== ENCOUNTER 2019-01-12 10:15 | Inpatient (IN) | payer OTHER ==
[2019-01-12 14:41] VITALS: BMI 38.0
--- NOTE | 2019-01-12 15:44 | HP ---
CIWA Score Nausea/Vomitin-No Nausea/No Vomiting Muscle Tremors: 4-Moderate,w/Arms Extend Anxiety: 4-Mod. Anxious/Guarded Agitation: 4-Moderately Restless Paroxysmal Sweats: 3 Orientation: 0-Oriented Tacttile Disturbances: 0-None Auditory Disturbances: 0-None Visual Disturbances: 0-None Headache: 1-Very Mild CIWA-Ar Total Score: 16 - Admission Criteria OASAS Guidelines: Admission for Medically Managed Detox: Requires at least one of the followin. CIWA greater than 12 2. Seizures within the past 24 hours 3. Delirium tremens within the past 24 hours 4. Hallucinations within the past 24 hours 5. Acute intervention needed for co occurring medical disorder 6. Acute intervention needed for co occurring psychiatric disorder 7. Severe withdrawal that cannot be handled at a lower level of care (continued vomiting, continued diarrhea, abnormal vital signs) requiring intravenous medication and/or fluids 8. Admission ROS [facility] - HPI Chief Complaint: I know I need help I drink too much and take too many drugs. Allergies/Adverse Reactions: Allergies Allergy/AdvReac Type Severity Reaction Status Date / Time No Known Allergies Allergy Verified 11/04/16 17:14 History of Present Illness: pt is a 33yrold male with a history of alcohol and crack/cocaine dependence seeking detox for treatment. Exam Limitations: No Limitations - Ebola screening Have you traveled outside of the country in the last 21 days: No (N) Have you had contact with anyone from an Ebola affected area: No Have you been sick,other than usual withdrawal symptoms: No Do you have a fever: No - Review of Systems Constitutional: Diaphoresis, Loss of Appetite, Night Sweats EENT: reports: Blurred Vision, Nose Congestion Respiratory: reports: No Symptoms reported Cardiac: reports: No Symptoms Reported GI: reports: Poor Appetite, Poor Fluid Intake : reports: No Symptoms Reported Musculoskeletal: reports: No Symptoms Reported Integumentary: reports: Flushing, Rash (to left leg.), Sweating Neuro: reports: Tingling, Tremors Endocrine: reports: Excessive Sweating, Flushing, Intolerance to Cold, Intolerance to Heat Hematology: reports: No Symptoms Reported Psychiatric: reports: Judgement Intact, Mood/Affect Appropiate, Orientated x3, Agitated, Anxious Other Systems: Reviewed and Negative Patient History - Patient Medical History Hx Anemia: Yes (asthma/h/o bronchitis) Hx Asthma: No Hx Chronic Obstructive Pulmonary Disease (COPD): No Hx Cancer: No Hx Cardiac Disorders: No Hx Congestive Heart Failure: No Hx Hypertension: No Hx Hypercholesterolemia: No Hx Pacemaker: No HX Cerebrovascular Accident: No Hx Seizures: No Hx Dementia: No Hx Diabetes: Yes (pre-diabets no meds; undercontrol) Hx Gastrointestinal Disorders: No Hx Liver Disease: No Hx Genitourinary Disorders: No Hx Sexually Transmitted Disorders: No Hx Renal Disease (ESRD): No Hx Thyroid Disease: No Hx Human Immunodeficiency Virus (HIV): No (negative) Hx Hepatitis C: No (negative) Hx Depression: Yes Hx Suicide Attempt: No (pt denies) Hx Bipolar Disorder: No Hx Schizophrenia: Yes (schizoaffective disorder) - Patient Surgical History Past Surgical History: Yes Hx Neurologic Surgery: No Hx Cataract Extraction: No Hx Cardiac Surgery: No Hx Lung Surgery: No Hx Breast Surgery: No Hx Breast Biopsy: No Hx Abdominal Surgery: No Hx Appendectomy: No Hx Cholecystectomy: No Hx Genitourinary Surgery: No Hx Section: No Hx Orthopedic Surgery: Yes (right knee torn miniscus) Anesthesia Reaction: No - PPD History Previous Implant?: Yes Documented Results: Positive w/o proof PPD to be Administered?: Yes - Reproductive History Patient is a Female of Child Bearing Age (11 -55 yrs old): No - Smoking Cessation Smoking history: Current every day smoker Have you smoked in the past 12 months: Yes Aproximately how many cigarettes per day: 20 Cigars Per Day: 0 Hx Chewing Tobacco Use: No Initiated information on smoking cessation: Yes 'Breaking Loose' booklet given: 01/12/19 - Substance & Tx. History Hx Alcohol Use: Yes Hx Substance Use: No Substance Use Type: Alcohol, Cocaine Hx Substance Use Treatment: Yes (last detox 2017 [facility]) - Substances abused Alcohol Substance route: Oral Frequency: Daily Amount used: 2 beers/ 1 pt Vodka/Alethea Age of first use: 21 Date of last use: 01/11/19 Cocaine Substance route: Inhalation Frequency: 3-6 times per week Amount used: 1bag Age of first use: 16 Date of last use: 01/08/19 Crack Substance route: Smoking Frequency: 1-2 times per week Amount used: 2 rocks Age of first use: 16 Date of last use: 01/02/19 Family Disease History - Family Disease History Family Disease History: Diabetes: Grandparent Admission Physical Exam [facility] - Vital Signs Vital Signs: Vital Signs - 24 hr 01/12/19 11:39 Temperature 98.5 F Pulse Rate 89 Respiratory 16 Rate Blood Pressure 92/62 - Physical General Appearance: Yes: Appropriately Dressed, Moderate Distress, Obese, Tremorous, Irritable, Sweating, Anxious HEENTM: Yes: Hearing grossly Normal, Normal Voice, Nasal Congestion, Rhinorrhea Respiratory: Yes: Lungs Clear, Normal Breath Sounds, No Respiratory Distress Neck: Yes: No masses,lesions,Nodules Breast: Yes: Within Normal Limits Cardiology: Yes: Regular Rhythm, Regular Rate, S1, S2 Abdominal: Yes: Normal Bowel Sounds, Non Tender, Soft Genitourinary: Yes: Within Normal Limits Back: Yes: Normal Inspection Musculoskeletal: Yes: full range of Motion Extremities: Yes: Normal Capillary Refill, Normal Inspection, Non-Tender, Tremors Neurological: Yes: Fully Oriented, Alert, Normal Response Integumentary: Yes: Normal Color Lymphatic: Yes: Within Normal Limits - Diagnostic (1) Alcohol dependence with uncomplicated withdrawal Current Visit: Yes Status: Chronic (2) Cannabis dependence Current Visit: Yes Status: Chronic (3) Cocaine dependence Current Visit: Yes Status: Chronic Qualifiers: Substance use status: uncomplicated Qualified Code(s): F14.20 - Cocaine dependence, uncomplicated (4) Nicotine dependence Current Visit: Yes Status: Chronic Qualifiers: Nicotine product type: cigarettes Substance use status: uncomplicated Qualified Code(s): F17.210 - Nicotine dependence, cigarettes, uncomplicated (5) Schizoaffective disorder Current Visit: No Status: Acute (6) Bipolar I, single manic episode, severe with psychotic behavior Current Visit: No Status: Chronic Comment: pt received his dose of IM haldol on December 18, 2018. pt is due for his next dose January Cleared for Admission [facility] - Detox or Rehab [facility] Level of Care: Medically Managed Detox Regimen/Protocol: Librium Breathalyzer - Breathalyzer Breathalyzer: 0 Urine Drug Screen - Test Device Lot number: [id number] Expiration date: 12/15/19 - Control Is test valid?: Yes - Results Drug screen NEGATIVE: No Urine drug screen results: MOP-Opiates Inpatient Rehab Admission - Rehab Decision to Admit Inpatient rehab admission?: No
[2019-01-12] MEDS ORDERED: BACLOFEN 10 MG TABLET (FP) PO PRN (16:03)
[2019-01-12] MEDS ORDERED: ACETAMINOPHEN 325 MG TABLET (FP) PO PRN ×2 (16:03)
[2019-01-12] MEDS ORDERED: MAGNESIUM CITRATE 300 ML BOTTLE PO PRN (16:03)
[2019-01-12] MEDS ORDERED: IBUPROFEN 400 MG TABLET (FP) PO PRN (16:03)
[2019-01-12] MEDS ORDERED: BISMUTH SUBSALICYLATE 524 MG/30 ML UD PO PRN (16:03)
[2019-01-12] MEDS ORDERED: MELATONIN 5 MG TABLETS PO PRN (16:03)
[2019-01-12] MEDS ORDERED: MAG HYDROX/AL HYDROX/SIMETH 30 ML UNIT-DOSE CUP PO PRN (16:03)
[2019-01-12] MEDS ORDERED: MAGNESIUM HYDROX 2400MG/30ML ORAL SUSPENSION 30 ML CUP PO PRN (16:03)
[2019-01-12] MEDS ORDERED: MENTHOL/PHENOL 1 EACH UD MM PRN (16:03)
[2019-01-12] MEDS ORDERED: hydrOXYzine PAMOATE 25 MG CAPSULE (FP) PO PRN (16:03)
[2019-01-12] MEDS ORDERED: chlordiazePOXIDE HCL 25 MG CAPSULE PO PRN (16:03)
[2019-01-12] MEDS ORDERED: ALBUTEROL SO4 8 GM HFA INHALER IH PRN (16:07)
--- NOTE | 2019-01-12 17:13 | EKG ---
Test Reason : Blood Pressure : / mmHG Vent. Rate : 061 BPM Atrial Rate : 061 BPM P-R Int : 146 ms QRS Dur : 098 ms QT Int : 372 ms P-R-T Axes : 051 024 031 degrees QTc Int : 374 ms NORMAL SINUS RHYTHM NORMAL ECG WHEN COMPARED WITH ECG OF 04-NOV-2016 18:00, QT HAS SHORTENED Confirmed by NEHA SOSA MD ([id number]) on 01/12/2019 5:12:56 PM Referred By: YANA SR Confirmed By:NEHA SOSA MD
[2019-01-12] MEDS: chlordiazePOXIDE HCL 25 MG CAPSULE PO SCH ×2 (17:28→22:51)
[2019-01-12] MEDS: BUDESONIDE/FORMETEROL FUMARATE 80/4.5 mcg INHALER IH SCH (22:51)
[2019-01-12] MEDS: THIAMINE HCL 100 MG TABLET (FP) PO SCH (22:51)
[2019-01-13] MEDS: chlordiazePOXIDE HCL 25 MG CAPSULE PO SCH ×4 (06:51→22:23)
[2019-01-13 10:13] LABS: ALBUMIN 3.6 g/dl (3.4-5.0); BILIRUBIN,TOTAL 0.5 mg/dL (0.2-1); CALCIUM 9.1 mg/dL (8.5-10.1); CREATININE 0.9 mg/dL (0.55-1.3); POTASSIUM 4.3 mmol/L (3.5-5.1); TOT PROT 6.7 g/dl (6.4-8.2)
[2019-01-13 10:26] LABS: HEMATOCRIT 40.5 % (35.4-49); HEMOGLOBIN 13.6 GM/dL (11.7-16.9); MCH 30.6 pg (25.7-33.7); MCHC 33.7 g/dl (32.0-35.9); MEAN CELL VOLUME 90.8 fl (80-96); PLATELET COUNT 217 K/MM3 (134-434); RBC 4.46 M/mm3 (4.00-5.60); RDW 13.6 % (11.9-15.9)
[2019-01-13] MEDS: PRENATAL VITAMINS W/ FOLIC ACID TABLET (FP) PO SCH (10:30)
[2019-01-13] MEDS: NICOTINE 21 MG/24 HOURS TOPICAL PATCH TD SCH (10:30)
[2019-01-13] MEDS: BUDESONIDE/FORMETEROL FUMARATE 80/4.5 mcg INHALER IH SCH ×2 (10:30→22:24)
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
--- NOTE | 2019-01-13 11:23 | PN ---
S CIWA - CIWA Score Nausea/Vomitin-No Nausea/No Vomiting Muscle Tremors: 3 Anxiety: 3 Agitation: 3 Paroxysmal Sweats: 3 Orientation: 0-Oriented Tacttile Disturbances: 0-None Auditory Disturbances: 0-None Visual Disturbances: 0-None Headache: 0-None Present CIWA-Ar Total Score: 12 S Progress Note (SOAP) Subjective: sweats shakes interrupted sleep body aches tired Objective: 01/13/19 11:22 Vital Signs Temperature 97.5 F L 01/13/19 09:55 Pulse Rate 69 01/13/19 09:55 Respiratory Rate 18 01/13/19 09:55 Blood Pressure 100/43 L 01/13/19 09:55 O2 Sat by Pulse Oximetry (%) Laboratory Tests 01/13/19 01/13/19 01/13/19 06:50 07:30 07:30 WBC 6.0 RBC 4.46 Hgb 13.6 Hct 40.5 MCV 90.8 MCH 30.6 MCHC 33.7 RDW 13.6 Plt Count 217 MPV 9.0 Sodium 140 Potassium 4.3 Chloride 108 H Carbon Dioxide 29 Anion Gap 4 L BUN 18 Creatinine 0.9 Est GFR (CKD-EPI)AfAm 129.61 Est GFR (CKD-EPI)NonAf 111.83 POC Glucometer 104 Random Glucose 102 Calcium 9.1 Total Bilirubin 0.5 AST 16 ALT 31 Alkaline Phosphatase 55 Total Protein 6.7 Albumin 3.6 labs noted aaox3 ambulating no acute distress Assessment: 01/13/19 11:23 withdrawal sx Plan: continue detox increase fluids
[2019-01-13] MEDS ORDERED: GABAPENTIN 300 MG CAPSULE (FP) PO SCH (11:30)
[2019-01-13] MEDS: BENZTROPINE MESYLATE 1 MG TABLET (FP) PO SCH ×2 (13:02→22:23)
[2019-01-13] MEDS: NICOTINE POLACRILEX 4 MG GUM BUC PRN ×2 (13:03→23:04)
[2019-01-13] MEDS: ARIPiprazole 5 MG TABLET (FP) PO SCH (13:24)
[2019-01-13] MEDS: GABAPENTIN 300 MG CAPSULE (FP) PO SCH ×2 (13:41→22:23)
[2019-01-13] MEDS ORDERED: HALOPERIDOL 5 MG TABLET (FP) PO SCH (22:00)
[2019-01-13] MEDS: THIAMINE HCL 100 MG TABLET (FP) PO SCH (22:24)
[2019-01-14] MEDS: chlordiazePOXIDE HCL 25 MG CAPSULE PO SCH ×2 (06:26→12:47)
[2019-01-14] MEDS: GABAPENTIN 300 MG CAPSULE (FP) PO SCH ×2 (06:27→15:09)
[2019-01-14 10:28] VITALS: BP 102/60; PULSE 75; TEMP 97.9
--- NOTE | 2019-01-14 10:48 | PN ---
S CIWA - CIWA Score Nausea/Vomitin-No Nausea/No Vomiting Muscle Tremors: 3 Anxiety: 2 Agitation: 2 Paroxysmal Sweats: 2 Orientation: 0-Oriented Tacttile Disturbances: 0-None Auditory Disturbances: 0-None Visual Disturbances: 0-None Headache: 0-None Present CIWA-Ar Total Score: 9 [facility] Progress Note (SOAP) Subjective: feeling better sweats tired Objective: 01/14/19 10:47 Vital Signs Temperature 97.9 F 01/14/19 10:27 Pulse Rate 75 01/14/19 10:27 Respiratory Rate 18 01/14/19 10:27 Blood Pressure 102/60 01/14/19 10:27 O2 Sat by Pulse Oximetry (%) Laboratory Tests 01/13/19 01/13/19 01/13/19 06:50 07:30 07:30 WBC 6.0 RBC 4.46 Hgb 13.6 Hct 40.5 MCV 90.8 MCH 30.6 MCHC 33.7 RDW 13.6 Plt Count 217 MPV 9.0 Sodium 140 Potassium 4.3 Chloride 108 H Carbon Dioxide 29 Anion Gap 4 L BUN 18 Creatinine 0.9 Est GFR (CKD-EPI)AfAm 129.61 Est GFR (CKD-EPI)NonAf 111.83 POC Glucometer 104 Random Glucose 102 Calcium 9.1 Total Bilirubin 0.5 AST 16 ALT 31 Alkaline Phosphatase 55 Total Protein 6.7 Albumin 3.6 RPR Titer 01/13/19 07:30 WBC RBC Hgb Hct MCV MCH MCHC RDW Plt Count MPV Sodium Potassium Chloride Carbon Dioxide Anion Gap BUN Creatinine Est GFR (CKD-EPI)AfAm Est GFR (CKD-EPI)NonAf POC Glucometer Random Glucose Calcium Total Bilirubin AST ALT Alkaline Phosphatase Total Protein Albumin RPR Titer Nonreactive aaox3 ambulating no acute distress Assessment: 01/14/19 10:47 mild withdrawal sx Plan: continue detox increase fluids
[2019-01-14] MEDS: ARIPiprazole 5 MG TABLET (FP) PO SCH (15:08)
[2019-01-14] MEDS: BENZTROPINE MESYLATE 1 MG TABLET (FP) PO SCH (15:08)
[2019-01-14] MEDS: NICOTINE 21 MG/24 HOURS TOPICAL PATCH TD SCH (15:08)
[2019-01-14] MEDS: PRENATAL VITAMINS W/ FOLIC ACID TABLET (FP) PO SCH (15:08)
[2019-01-14] MEDS: BUDESONIDE/FORMETEROL FUMARATE 80/4.5 mcg INHALER IH SCH (15:09)
--- NOTE | 2019-01-14 15:25 | PN ---
[facility] Progress Note Note: pt states he needs to go home. pt wants to see his own doctor and psych and he is feeling better. Pt encouraged to take his daily dose of psych med before he signs out. Pt in agreement. No s/s of any withdrawals note at this point, pt encouraged to stay and complete his detox but pt insisted he is ok and wants to leave. Pt signed out AMA.
--- NOTE | 2019-01-14 15:35 | DS ---
[facility] Detox Discharge Summary Admission Date: 01/12/19 - History Present History: Alcohol Dependence, Cannabis Dependence, Cocaine Dependence - Physical Exam Results Vital Signs: Vital Signs Temperature 97.9 F 01/14/19 10:27 Pulse Rate 75 01/14/19 10:27 Respiratory Rate 18 01/14/19 10:27 Blood Pressure 102/60 01/14/19 10:27 O2 Sat by Pulse Oximetry (%) - Treatment Hospital Course: Discharged Condition Good - Medication Discharge Medications: Ambulatory Orders Haloperidol Decanoate [Haldol Decanoate 100] 100 mg IM MONTHLY 11/04/16 Albuterol Sulfate Inhaler - [Ventolin HFA Inhaler -] 2 puff IH Q4H PRN #1 inhaler 11/27/16 Benztropine Mesylate [Cogentin -] 2 mg PO BID #60 tab 11/27/16 Budesonide/Formeterol Fumarate [SYMBICORT 80/4.5mcg -] 2 puff IH BID #1 inhaler 11/27/16 Aripiprazole [Abilify] 5 mg PO DAILY 01/12/19 Divalproex [Depakote -] 500 mg PO BID 01/12/19 Gabapentin [Neurontin] 300 mg PO QID 01/12/19 Haloperidol [Haldol -] 5 mg PO HS 01/12/19 - Diagnosis (1) Alcohol dependence with uncomplicated withdrawal Current Visit: Yes Status: Chronic (2) Cannabis dependence Current Visit: Yes Status: Chronic (3) Cocaine dependence Current Visit: Yes Status: Chronic Qualifiers: Substance use status: uncomplicated Qualified Code(s): F14.20 - Cocaine dependence, uncomplicated (4) Nicotine dependence Current Visit: Yes Status: Chronic Qualifiers: Nicotine product type: cigarettes Substance use status: uncomplicated Qualified Code(s): F17.210 - Nicotine dependence, cigarettes, uncomplicated (5) Schizoaffective disorder Current Visit: No Status: Chronic (6) Bipolar I, single manic episode, severe with psychotic behavior Current Visit: No Status: Chronic - AMA Did Patient Leave Against Medical Advice: Yes (going home and will see his PCP/ psych MD)
[2019-01-14] MEDS ORDERED: chlordiazePOXIDE HCL 10 MG CAPSULE PO SCH (17:00)
[2019-01-15] MEDS ORDERED: chlordiazePOXIDE HCL 10 MG CAPSULE PO SCH (17:00)
[2019-01-18] MEDS ORDERED: HALOPERIDOL DECANOATE 100 MG/ML IM ONE (10:00)
== END 2019-01-14 15:30 | disposition left against medical advice (07) | DRG 894 ==
LOC: YASAS 10:15 → Y6N 16:54
PROVIDERS: ADMIT Surgery; ATTEND Surgery
PROC: HZ2ZZZZ Detoxification Services for Substance Abuse Treatment (ICD-10-PCS; principal; 2019-01-12)
DX: F10.230 Alcohol dependence with withdrawal, uncomplicated (principal); F14.20 Cocaine dependence, uncomplicated; F31.2 Bipolar disorder, current episode manic severe with psychotic features; F12.20 Cannabis dependence, uncomplicated; F17.210 Nicotine dependence, cigarettes, uncomplicated; F25.9 Schizoaffective disorder, unspecified; R73.03 Prediabetes; R76.11 Nonspecific reaction to tuberculin skin test without active tuberculosis; E66.9 Obesity, unspecified; Z68.38 Body mass index [BMI] 38.0-38.9, adult
CPT/HCPCS: 36415; 80053; 82962; 85027; 86593; 93005; 93010